=== PATIENT | female | born 1990 | race Two or more races ===

== ENCOUNTER → 2017-01-03 | Outpatient (CLI) | payer MEDICAID | END | disposition home or self-care (01) | LOC: CFH 11:00 | PROVIDERS: ATTEND Registered Nurse | DX: M79.662 Pain in left lower leg (principal) ==

== ENCOUNTER 2017-01-30 20:44 | Outpatient (CLI) | payer MEDICAID | END 2017-01-30 22:12 | disposition home or self-care (01) | LOC: LDOP 20:44 | PROVIDERS: ATTEND Student in an Organized Health Care Education/Training Program | DX: O62.9 Abnormality of forces of labor, unspecified (principal); O12.03 Gestational edema, third trimester; O13.3 Gestational [pregnancy-induced] hypertension without significant proteinuria, third trimester; Z3A.29 29 weeks gestation of pregnancy | CPT/HCPCS: 59025; 81003; 87086; 99211; G0463 ==

== ENCOUNTER 2017-02-11 20:13 | Outpatient (CLI) | payer MEDICAID ==
[2017-02-11 20:45] LABS: PATH.CAST-FLAG NOT PRESENT; SPERM-FLAG NOT PRESENT; SRC-FLAG NOT PRESENT; XTAL-FLAG NOT PRESENT; YLC-FLAG NOT PRESENT
[2017-02-11 20:58] LABS: ASPARTATE AMINO TRANSFERASE 15 U/L (15-37); BLOOD UREA NITROGEN 9 mg/dL (7-18)
== END 2017-02-11 21:35 | disposition home or self-care (01) ==
LOC: LDOP 20:13
PROVIDERS: ATTEND Student in an Organized Health Care Education/Training Program
DX: O26.893 Other specified pregnancy related conditions, third trimester (principal); O26.833 Pregnancy related renal disease, third trimester; O99.333 Smoking (tobacco) complicating pregnancy, third trimester; F17.200 Nicotine dependence, unspecified, uncomplicated; R10.9 Unspecified abdominal pain; M54.9 Dorsalgia, unspecified; N28.89 Other specified disorders of kidney and ureter; Z3A.31 31 weeks gestation of pregnancy
CPT/HCPCS: 36415; 59025; 76770; 80053; 81001; 85025; 87086; 99211; G0463

== ENCOUNTER 2017-03-04 11:44 | Outpatient (CLI) | payer MEDICAID ==
[2017-03-04 13:34] LABS: HEMATOCRIT 36.1 % (34.6-47.8); HEMOGLOBIN 12.1 g/dL (11.7-16.4); WHITE BLOOD COUNT 12.9 x10^3/uL (3.4-10)
[2017-03-04 13:47] LABS: BLOOD UREA NITROGEN 6 mg/dL (7-18)
[2017-03-04 13:51] LABS: ASPARTATE AMINO TRANSFERASE 13 U/L (15-37)
== END 2017-03-04 14:55 | disposition home or self-care (01) ==
LOC: LDOP 11:44
PROVIDERS: ATTEND Student in an Organized Health Care Education/Training Program
DX: O16.3 Unspecified maternal hypertension, third trimester (principal); O26.893 Other specified pregnancy related conditions, third trimester; R51 Headache; Z3A.35 35 weeks gestation of pregnancy
CPT/HCPCS: 36415; 59025; 80053; 81003; 81050; 82248; 82570; 84156; 84550; 85025; 87086; 99211; G0463

== ENCOUNTER 2017-03-05 15:12 | Outpatient (CLI) | payer MEDICAID ==
[~2017-03-05] VITALS: Ht 152.4 cm; Wt 78.2 kg
[2017-03-05 15:21] VITALS: BP 122/68
== END 2017-03-05 16:15 | disposition home or self-care (01) ==
LOC: LDOP 15:12
PROVIDERS: ATTEND Obstetrics & Gynecology
DX: O26.893 Other specified pregnancy related conditions, third trimester (principal); O36.8130 Decreased fetal movements, third trimester, not applicable or unspecified; O26.833 Pregnancy related renal disease, third trimester; O99.333 Smoking (tobacco) complicating pregnancy, third trimester; Q61.5 Medullary cystic kidney; R51 Headache; F17.200 Nicotine dependence, unspecified, uncomplicated; Z3A.34 34 weeks gestation of pregnancy
CPT/HCPCS: 59025; 81003; 87086; 99211; G0463

== ENCOUNTER 2017-03-07 11:41 | Observation (INO) | payer MEDICAID ==
[~2017-03-07] VITALS: Ht 152.4 cm; Wt 78.1 kg
[2017-03-07 11:57] VITALS: BP 136/81
[2017-03-07] MEDS ORDERED: BETAMETHASONE 6 MG/ML, 5ML IM ONE ×2 (12:00→12:12)
[2017-03-08] MEDS ORDERED: LABE200T3 PO (18:53)
[2017-03-08] MEDS ORDERED: PREN1TAB60 PO (19:07)
== END 2017-03-07 14:19 | disposition home or self-care (01) ==
LOC: LDIP 11:41
PROVIDERS: ADMIT Student in an Organized Health Care Education/Training Program; ATTEND Student in an Organized Health Care Education/Training Program
DX: Z34.93 Encounter for supervision of normal pregnancy, unspecified, third trimester (principal); Z3A.34 34 weeks gestation of pregnancy
CPT/HCPCS: 59025; 76819; 96372; 99211; G0378; J0702; G0463

== ENCOUNTER 2017-03-08 17:38 | Outpatient (CLI) | payer MEDICAID ==
[~2017-03-08] VITALS: Ht 152.4 cm; Wt 78.2 kg
[2017-03-08 17:46] VITALS: BP 144/83
[2017-03-08 18:40] LABS: HEMATOCRIT 35.8 % (34.6-47.8); WHITE BLOOD COUNT 16.6 x10^3/uL (3.4-10)
[2017-03-08 18:46] LABS: ASPARTATE AMINO TRANSFERASE 14 U/L (15-37); BLOOD UREA NITROGEN 7 mg/dL (7-18)
[2017-03-08 18:50] LABS: PATH.CAST-FLAG NOT PRESENT; SPERM-FLAG NOT PRESENT; SRC-FLAG NOT PRESENT; XTAL-FLAG NOT PRESENT; YLC-FLAG NOT PRESENT
[2017-03-08] MEDS ORDERED: LABE200T3 PO (18:53)
[2017-03-08] MEDS ORDERED: PREN1TAB60 PO (19:07)
== END 2017-03-08 19:30 | disposition home or self-care (01) ==
LOC: LDOP 17:38
PROVIDERS: ATTEND Student in an Organized Health Care Education/Training Program
DX: O26.893 Other specified pregnancy related conditions, third trimester (principal); O36.8130 Decreased fetal movements, third trimester, not applicable or unspecified; O26.833 Pregnancy related renal disease, third trimester; O99.333 Smoking (tobacco) complicating pregnancy, third trimester; O62.9 Abnormality of forces of labor, unspecified; Q61.5 Medullary cystic kidney; F17.200 Nicotine dependence, unspecified, uncomplicated; M54.9 Dorsalgia, unspecified; Z3A.34 34 weeks gestation of pregnancy
CPT/HCPCS: 36415; 59025; 80053; 81001; 82570; 84156; 84550; 85025; 87081; 99211; G0463

== ENCOUNTER → 2017-03-08 | Outpatient (CLI) | payer MEDICAID ==
[~2017-03-08] MED LIST: BETAMETHASONE 6 MG/ML, 5ML IM ONE; LABE200T3 PO; PLEASE ENTER HEIGHT AND WEIGHT MC SCH; PREN1TAB60 PO
== END ==
LOC: LDOP 11:58
PROVIDERS: ATTEND Student in an Organized Health Care Education/Training Program
DX: O26.893 Other specified pregnancy related conditions, third trimester (principal); O36.8130 Decreased fetal movements, third trimester, not applicable or unspecified; M54.9 Dorsalgia, unspecified; Z3A.35 35 weeks gestation of pregnancy
CPT/HCPCS: 59025; 96372; 99211; J0702; G0463

== ENCOUNTER 2017-03-24 09:32 | Outpatient (CLI) | payer MEDICAID ==
[~2017-03-24] VITALS: Ht 152.4 cm; Wt 79.1 kg
[~2017-03-24 09:32] MED LIST changes: -BETAMETHASONE 6 MG/ML, 5ML IM ONE; -PLEASE ENTER HEIGHT AND WEIGHT MC SCH
[2017-03-24 09:49] VITALS: BP 164/88
[2017-03-24 10:54] LABS: HEMOGLOBIN 12.4 g/dL (11.7-16.4); WHITE BLOOD COUNT 11.4 x10^3/uL (3.4-10)
[2017-03-24 11:06] LABS: ASPARTATE AMINO TRANSFERASE 13 U/L (15-37); BLOOD UREA NITROGEN 9 mg/dL (7-18)
== END 2017-03-24 11:57 | disposition home or self-care (01) ==
LOC: LDOP 09:32
PROVIDERS: ATTEND Student in an Organized Health Care Education/Training Program
DX: O10.913 Unspecified pre-existing hypertension complicating pregnancy, third trimester (principal); Z3A.37 37 weeks gestation of pregnancy
CPT/HCPCS: 36415; 59025; 80053; 81001; 82248; 82570; 84156; 84550; 85025; 87086; 99211; G0463

== ENCOUNTER 2017-03-31 | Inpatient (IN) | payer MEDICAID ==
[~2017-03-31] VITALS: Ht 152.4 cm; Wt 81.4 kg
[2017-03-31] MEDS ORDERED: OXYTOCIN 30U/ 0.9% NaCL 500ML 500 ML ONE (00:37)
[2017-03-31] MEDS: LACTATED RINGERS 1,000 ML IV SCH ×4 (00:47→12:55)
[2017-03-31] MEDS ORDERED: OXYTOCIN 30U/ 0.9% NaCL 500ML 500 ML IV ONE (01:06)
[2017-03-31] MEDS ORDERED: OXYTOCIN 30U/ 0.9% NaCL 500ML 500 ML IV PRN (01:06)
[2017-03-31] MEDS: D5%-LACTATED RINGERS 1,000 ML IV SCH ×2 (01:06→09:06)
[2017-03-31] MEDS ORDERED: FENTANYL PF 100 MCG/2ML IVPush PRN (01:30)
[2017-03-31] MEDS ORDERED: ALUMINUM/MAG/SIMETHICONE 30 ML UDC PO PRN (01:30)
[2017-03-31] MEDS ORDERED: TERBUTALINE 1 MG/ML, 1ML SQ PRN (01:30)
[2017-03-31] MEDS ORDERED: TERBUTALINE 1 MG/ML, 1ML IVPush PRN ×2 (01:30)
[2017-03-31] MEDS ORDERED: CALCIUM CARBONATE 500 MG TAB.CHEW PO PRN ×2 (01:30→15:00)
[2017-03-31] MEDS ORDERED: PLEASE ENTER HEIGHT AND WEIGHT MC SCH (01:30)
[2017-03-31] MEDS ORDERED: ONDANSETRON 2MG/ML, 2ML IVPush PRN (01:30)
[2017-03-31 01:33] LABS: HEMATOCRIT 37.6 % (34.6-47.8); HEMOGLOBIN 12.9 g/dL (11.7-16.4); WHITE BLOOD COUNT 13.4 x10^3/uL (3.4-10)
[2017-03-31 01:44] LABS: BLOOD UREA NITROGEN 6 mg/dL (7-18)
[2017-03-31 01:48] LABS: ASPARTATE AMINO TRANSFERASE 16 U/L (15-37)
[2017-03-31 02:23] VITALS: BP 157/97
[2017-03-31] MEDS ORDERED: NEWBORN KIT ONE (02:43)
[2017-03-31] MEDS ORDERED: ONDANSETRON 2MG/ML, 2ML ONE (05:23)
[2017-03-31] MEDS ORDERED: FENTANYL PF 100 MCG/2ML ONE ×4 (06:08→09:19)
[2017-03-31] MEDS: FENTANYL PF 100 MCG/2ML IV PRN ×2 (06:19→07:46)
[2017-03-31] MEDS ORDERED: BUPIVACAINE 0.25% ONE (09:20)
[2017-03-31] MEDS ORDERED: FENTANYL/BUPIV./NS/PF 250 ML EPIDCONT ONE (09:20)
[2017-03-31] MEDS ORDERED: LIDOCAINE/PF 1.5%-EPI 1:200K, 30ML ONE (09:45)
[2017-03-31] MEDS ORDERED: LACTATED RINGERS 1,000 ML IV SCH (13:22)
[2017-03-31] MEDS ORDERED: FENTANYL/BUPIV./NS/PF 250 ML EPIDCONT SCH (13:22)
[2017-03-31] MEDS ORDERED: LACTATED RINGERS 1,000 ML IVBOLUS PRN (13:30)
[2017-03-31] MEDS: OXYTOCIN 30U/ 0.9% NaCL 500ML 500 ML IV SCH (14:47)
[2017-03-31] MEDS ORDERED: DOCUSATE 100 MG CAPSULE PO PRN (15:00)
[2017-03-31] MEDS ORDERED: ONDANSETRON 2MG/ML, 2ML IV PRN (15:00)
[2017-03-31] MEDS ORDERED: HYDROcodone/APAP 5/325 TABLET PO PRN (15:00)
[2017-03-31] MEDS ORDERED: MISOPROSTOL 200 MCG TABLET PR PRN (15:00)
[2017-03-31 16:30] VITALS: BP 130/82
[2017-03-31] MEDS: HYDROcodone/APAP 5/325 TABLET PO PRN ×2 (18:39→19:34)
[2017-03-31] MEDS: IBUPROFEN 600 MG TABLET PO PRN (18:39)
[2017-03-31 19:20] VITALS: BP 135/79
[2017-03-31] MEDS: LABETALOL 200 MG TABLET HOMEMEDPO SCH (21:52)
[2017-03-31 23:52] LABS: HEMATOCRIT 34.6 % (34.6-47.8); HEMOGLOBIN 11.9 g/dL (11.7-16.4)
[2017-04-01 00:10] VITALS: BP 126/77
[2017-04-01] MEDS: OXYTOCIN 30U/ 0.9% NaCL 500ML 500 ML IV SCH (00:47)
[2017-04-01 01:01] LABS: WHITE BLOOD COUNT 16.5 x10^3/uL (3.4-10)
[2017-04-01] MEDS: HYDROcodone/APAP 5/325 TABLET PO PRN ×3 (04:41→13:18)
[2017-04-01] MEDS: IBUPROFEN 600 MG TABLET PO PRN ×2 (04:41→13:18)
[2017-04-01 05:17] VITALS: BP 133/89
[2017-04-01] MEDS ORDERED: OXYcodone/APAP 5/325MG TABLET PO PRN (06:30)
[2017-04-01 07:50] VITALS: BP 162/89
[2017-04-01] MEDS ORDERED: DOCU-131 PO (08:53)
[2017-04-01] MEDS ORDERED: IBUP-1222 PO (08:54)
[2017-04-01] MEDS ORDERED: OXYC-302 PO (08:55)
[2017-04-01] MEDS: LABETALOL 200 MG TABLET HOMEMEDPO SCH (09:00)
[2017-04-01] MEDS ORDERED: PRENATAL VIT/IRON/FA 1 EACH TABLET PO SCH (09:00)
== END 2017-04-01 13:48 | disposition home or self-care (01) | DRG 774 ==
LOC: LDIP → 2NW 16:17
PROVIDERS: ADMIT Student in an Organized Health Care Education/Training Program; ATTEND Student in an Organized Health Care Education/Training Program
PROC: 10E0XZZ Delivery of Products of Conception, External Approach (ICD-10-PCS; principal; 2017-03-31)
PROC: 3E033VJ Introduction of Other Hormone into Peripheral Vein, Percutaneous Approach (ICD-10-PCS; 2017-03-31)
PROC: 00HU33Z Insertion of Infusion Device into Spinal Canal, Percutaneous Approach (ICD-10-PCS; 2017-03-31)
PROC: 3E0R3CZ (ICD-10-PCS; 2017-03-31)
DX: O10.22 Pre-existing hypertensive chronic kidney disease complicating childbirth (principal); I12.9 Hypertensive chronic kidney disease with stage 1 through stage 4 chronic kidney disease, or unspecified chronic kidney disease; N18.9 Chronic kidney disease, unspecified; Z37.0 Single live birth; Z88.0 Allergy status to penicillin; Z88.2 Allergy status to sulfonamides; Z88.8 Allergy status to other drugs, medicaments and biological substances; Z88.3 Allergy status to other anti-infective agents; Z91.030 Bee allergy status; Z3A.38 38 weeks gestation of pregnancy
CPT/HCPCS: 36415; 80053; 81003; 82248; 84550; 85025; 86850; 86900; J2405; J3010; J3490; J2590; J7120